=== PATIENT | male | born 1955 ===

== ENCOUNTER 2023-09-12 09:05 | Outpatient (CLI) | payer OTHER ==
[2023-09-12 14:48] LABS: CALCIUM 9.2 mg/dL (8.5-10.3); CREATININE 0.9 mg/dL (0.6-1.3); POTASSIUM 4.4 mmol/L (3.5-4.5)
[2023-09-12 15:04] LABS: THYROID STIMULATING HORMONE 2.1 uIU/mL (0.34-5.60)
[2023-09-12 15:10] LABS: MICROALBUMIN,URINE < 0.7 mg/dL
[2023-09-12 20:47] LABS: ESTIMATED AVERAGE GLUCOSE 169 mg/dL (70-100); HEMOGLOBIN A1c% 7.5 % (4.27-6.07)
== END 2023-09-12 09:06 | disposition home or self-care (01) ==
LOC: LAB.S 09:05
PROVIDERS: ATTEND Nurse Practitioner Family
DX: E11.8 Type 2 diabetes mellitus with unspecified complications (principal)
CPT/HCPCS: 36415; 80048; 82043; 82570; 83036; 84443